=== PATIENT | female | born 1980 | race Caucasian/White ===

== ENCOUNTER → 2019-01-20 | Outpatient (CLI) | payer OTHER ==
[~2019-01-20] MED LIST: COLA100C5 PO; IBUP80TA PO; PERCOCET PO
--- NOTE | 2019-01-20 19:41 | REP ---
HISTORY: Pain after trauma. COMPARISON: None. There is lateral soft tissue swelling. No acute fracture or destructive osseous lesion. The mortise is intact. Electronically Signed by Hector Mason DO 01/20/2019 07:46 P
== END ==
LOC: M LRY 18:11
PROVIDERS: ATTEND Physician Assistant
DX: M25.471 Effusion, right ankle (principal)
CPT/HCPCS: 73610; 96372; G0463; J1885

== ENCOUNTER → 2019-06-26 | Outpatient (REF) | payer OTHER | LOC: M SFHCLERA 09:58 | PROVIDERS: ATTEND Physician Assistant | DX: J02.9 Acute pharyngitis, unspecified (principal) ==

== ENCOUNTER → 2019-07-01 | Outpatient (REF) | payer OTHER | LOC: M SFHCLERA 17:00 | PROVIDERS: ATTEND Nurse Practitioner Family | DX: J02.9 Acute pharyngitis, unspecified (principal) ==